=== PATIENT | male | born 1940 | race Caucasian/White ===

== ENCOUNTER → 2018-04-25 12:23 | Outpatient (CLI) | payer OTHER, SELFPAY | PROVIDERS: PCP Family Medicine; Visit Provider Orthopaedic Surgery | DX: M25.511 Pain in right shoulder (principal); Z53.9 Procedure and treatment not carried out, unspecified reason ==

== ENCOUNTER → 2018-05-01 11:46 | Outpatient (CLI) | payer OTHER, SELFPAY ==
--- NOTE | 2018-05-01 | DI.MRI.S_ITS ---
PROCEDURE: MR SHOULDER RT WO CON INDICATIONS: ACUTE PAIN OF RIGHT SHOULDER TECHNIQUE: Noncontrast oblique coronal T2 fast spin echo with fat saturation, oblique sagittal T1 spin echo and T2 fast spin echo with fat saturation, axial T1 spin echo and T2 fast spin echo with fat saturation through the shoulder. COMPARISON: None. FINDINGS: Image quality: Excellent. Rotator cuff: Supraspinatus tendinopathy and partial thickness bursal sided tear of the critical zone as well as the footprint, image 12 series 8, image 9 series 8. Infraspinatus tendinopathy and thickening is present. The teres minor appears intact. Mild subscapularis tendinopathy and thickening. No atrophy of the rotator cuff musculature. Bones and bursae: No bone marrow contusions or fractures. Severe acromioclavicular joint degeneration. There is also severe glenohumeral joint degeneration. No os acromiale. Lateral downsloping appearance of the acromion. Prominent subacromial/subdeltoid bursitis Capsule and soft tissues: Circumferential irregularity of the labrum presumably chronic tear/degeneration. The long head of the biceps tendon demonstrates normal location and morphology. The rotator interval appears normal, without fibrosis. The coracohumeral ligament is normal in thickness. IMPRESSION: Partial thickness bursal sided tear involving the footprint and critical zone of the supraspinatus tendon. Associated tendinopathy. Infraspinatus and subscapularis tendinopathy and thickening. Severe degenerative joint disease. Incidentally noted lateral downsloping appearance of the acromion. Subacromial/subdeltoid bursitis Circumferential fraying of the labrum probably chronic/degenerative in nature. Dictated by: Arthur Ruvalcaba M.D. on 05/01/2018 at 12:24 Approved by: Arthur Ruvalcaba M.D. on 05/01/2018 at 12:35
== END ==
PROVIDERS: PCP Family Medicine; Visit Provider Orthopaedic Surgery
DX: M25.511 Pain in right shoulder (principal); M75.111 Incomplete rotator cuff tear or rupture of right shoulder, not specified as traumatic; M19.011 Primary osteoarthritis, right shoulder; M75.51 Bursitis of right shoulder; M67.911 Unspecified disorder of synovium and tendon, right shoulder
CPT/HCPCS: 73221

== ENCOUNTER → 2022-01-10 10:39 | Outpatient (CLI) | payer MEDICARE, SELFPAY | PROVIDERS: PCP Family Medicine; Visit Provider Specialist | DX: N40.1 Benign prostatic hyperplasia with lower urinary tract symptoms (principal); N13.8 Other obstructive and reflux uropathy; N30.00 Acute cystitis without hematuria; N45.1 Epididymitis | CPT/HCPCS: 81002; 87086; 99215 ==